=== PATIENT | female | born 1945 | race Caucasian/White ===

== ENCOUNTER 2020-12-03 14:21 | Outpatient (CLI) | payer MEDICARE, MEDICAID, SELFPAY ==
--- NOTE | ~2020-12-03 | CT_ITS ---
EXAMINATION: CT diagnostic chest wo con DATE: 12/03/2020 15:39 INDICATION: Lung nodule TECHNIQUE: Computed tomography (CT) of the chest was performed without intravenous contrast. The dose -length product (DLP) was 84.65 mGy-cm. Automated exposure control and iterative reconstruction techn ique were employed. COMPARISON: None FINDINGS: There is a 4 mm nodule of the left upper lobe on image 30. There is a 4 mm nodule of the le ft lower lobe on image 86. The lungs are free of acute opacities. There is an 8 mm groundglass nodule of the left lower lobe on image 69. There is no pleural effusion or pneumothorax. No pathologically enlarged thoracic lymph nodes are identified. The heart size is normal. Calcified mediastinal lymph n odes are consistent with old granulomatous disease. The gallbladder is surgically absent. IMPRESSION: 1. Groundglass nodule of the left lower lobe, possibly infectious or inflammatory. Follow-up CT in 6- 12 months is recommended. 2. 4 mm nodules of the left lung, likely old granulomatous disease. These can be simultaneously evalu ated at the time of follow-up for the groundglass nodule. Reviewed, dictated and finalized at location A. IMPRESSION: 1. Groundglass nodule of the left lower lobe, possibly infectious or inflammato ry. Follow-up CT in 6-12 months is recommended. 2. 4 mm nodules of the left lung, likely old granulomatous disease. These can b e simultaneously evaluated at the time of follow-up for the groundglass nodule.
--- NOTE | 2020-12-05 12:17 | WPDSIXMINUTE ---
Six Minute Walk Procedure Procedure Performed Pulmonary Stress Test (6 min walk) Six Minute Walk Six Minute Walk: The patients O2 sats started at 96% and dropped as low as 92% on home 2 liters portable oxygen concentrator Total walk distance 228.60 meters conclusion: 2 L of oxygen per nasal cannula appears to be the appropriate dose at rest, exertion and during sleep.
--- NOTE | 2020-12-05 12:19 | WPDPFTINT ---
PFT Procedure Performed PFT Procedure Performed Spirometry with Pre/Post Bronchodilator Plethysmography (Lung Vol) Diffusing Cap (DLCO) Flow Vol Loop PFT Interpretation This PFT met all criteria for ATS standards and reproducibility FEV/FVC post bronchodilator 57% FEV1 58% FVC 74% TLC 93% RV 117% RV/TLC 57% DLCO 35% when adjusted for alveolar volume but not adjusted for hemoglobin Flow volume loops showed significant expiratory coving Impression: moderate airflow obstruction with borderline air trapping and severely reduced diffusion capacity. This pattern is suggestive of COPD. Clinical correlation is advised.
== END 2020-12-03 14:22 | disposition home or self-care (01) ==
PROVIDERS: Visit Provider Nurse Practitioner
DX: R91.1 Solitary pulmonary nodule (principal); R94.2 Abnormal results of pulmonary function studies; R91.8 Other nonspecific abnormal finding of lung field
CPT/HCPCS: 71250; 94060; 94618; 94726; 94729

== ENCOUNTER 2024-10-16 14:48 | Emergency (ER) | payer MEDICAID, MEDICARE, SELFPAY ==
--- NOTE | ~2024-10-16 | XR_ITS ---
EXAMINATION: XR hand LT min 3V DATE: 10/16/2024 15:38 INDICATION: Pain and swelling at the palmar aspect of the left hand TECHNIQUE: Posteroanterior, oblique and lateral views of the left hand were obtained. COMPARISON: None. FINDINGS: Bone alignment is normal. Diffuse osteopenia. No fracture. Polyarticular osteoarthritis at the left h and, moderate severity at the first carpometacarpal and first interphalangeal joint and mild at the r emaining joints throughout the left hand. No erosions to suggest inflammatory arthritis. IMPRESSION: 1. 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 No acute osseous abnormality. Reviewed, dictated and finalized at location A. IMPRESSION: 1. 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 No acute oss eous abnormality.
[2024-10-16 15:01] VITALS: BP 141/46; PULSE 67; RESP 20; TEMP 36.6; O2SAT 99
--- NOTE | 2024-10-16 15:20 | ED.GENADULT ---
HPI - General Adult General Chief complaint: Extremity Injury, Upper Stated complaint: left arm pain Source: patient Mode of arrival: ambulatory Limitations: no limitations History of Present Illness HPI narrative: 79-year-old female presented for complaint of left hand and wrist pain and swelling worsening over 1 week. She states the pain started in her fingers but has spread to wrist. Reports decreased ROM in wrist and unable to make a fist. Not taking anything for pain. Denies redness, bruising or deformity, numbness, tingling or weakness. denies injury. Rates pain 12/24. Related Data Home Medications ?Medication ?Instructions ?Recorded ?Confirmed ?Last Taken ?Type alprazolam 0.5 mg tablet mg 10/16/24 Unknown History aspirin 81 mg tablet,delayed 81 mg PO DAILY 10/16/24 Unknown History release (Adult Aspirin Regimen) fluticasone fur. 100 mcg-umeclid inhalation 10/16/24 Unknown History 62.5 mcg-vilant 25 mcg inhalat.powder (Trelegy Ellipta) fluticasone propionate 50 intranasal 10/16/24 Unknown History mcg/actuation nasal spray,suspension isosorbide mononitrate 30 mg mg PO 10/16/24 Unknown History tablet,extended release 24 hr metoprolol tartrate 25 mg tablet mg 10/16/24 Unknown History pantoprazole 20 mg tablet,delayed mg PO 10/16/24 Unknown History release Allergies Allergy/AdvReac Type Severity Reaction Status Date / Time No Known Allergies Allergy Verified 10/16/24 15:08 Review of Systems Review of Systems: CONSTITUTIONAL: Denies body aches, fever, chills CARDIOVASCULAR: Denies chest pain, palpitations, or edema. RESPIRATORY: Denies cough or dyspnea. SKIN: Denies rash wounds. MUSCULOSKELETAL: per HPI NEUROLOGIC: Denies headache, numbness, tingling, or weakness. All systems reviewed & are unremarkable except as noted in HPI and below [facility] Comments At time of signature, I have reviewed and agree with nursing past medical, surgical, social and family history unless otherwise noted. Please see nursing chart for further information. There is no relevant family history pertinent to the presenting complaint Exam Narrative: GENERAL: Well-appearing CHEST: Speaks in full sentences. No respiratory distress. HEART: Regular rate and rhythm. Normal and equal peripheral pulses. EXTREMITIES: Left hand with mild swelling and decreased ROM with making fist and with flexion/extension of left wrist. Hand has normal sensation. No ecchymosis, No point tenderness. No open wounds, skin tenting, obvious deformity; alignment normal, pulse palpable and equal bilaterally, skin warm, dry, pink. Capillary refill less than 3 seconds. SKIN: Warm, dry, no rash. NEURO: Alert and oriented x3. PSYCH: Normal mood and affect Course Course Emergency Course: Patient is aware of diagnosis, understands and agrees to treatment plan. Anticipatory guidance given. Patient agrees to follow-up as directed and is aware of reasons to seek care at the emergency department. Portions of this record may have been created with voice recognition software Level of Care: Express Care Visit Vital Signs Vital signs: Vital Signs Temperature 97.9 F 10/16/24 15:01 Pulse Rate 67 10/16/24 15:01 Respiratory Rate 20 10/16/24 15:01 Blood Pressure 141/46 H 10/16/24 15:01 Pulse Oximetry 99 10/16/24 15:01 Oxygen Delivery Room Air 10/16/24 15:01 Temperature 97.9 F 10/16/24 15:01 Pulse Rate 67 10/16/24 15:01 Respiratory Rate 20 10/16/24 15:01 Blood Pressure 141/46 H 10/16/24 15:01 Pulse Oximetry 99 10/16/24 15:01 Oxygen Delivery Room Air 10/16/24 15:01 Reviewed Medical Decision Making MDM Narrative Medical decision making narrative: Discussed physical exam findings and xray. Advised supportive measures and signs/symptoms to go to the ER. Pt is appropriate for outpt treatment and f/u. Differential Diagnosis Differential Diagnosis: sprain/strain of wrist, Colles' fracture, wrist fracture, hand fracture, finger sprain, dislocation of finger, gout, cellulitis, arthritis, tendonitis Vital Signs Vital Signs: Vital Signs Temperature 97.9 F 10/16/24 15:01 Pulse Rate 67 10/16/24 15:01 Respiratory Rate 20 10/16/24 15:01 Blood Pressure 141/46 H 10/16/24 15:01 Pulse Oximetry 99 10/16/24 15:01 Oxygen Delivery Room Air 10/16/24 15:01 Temperature 97.9 F 10/16/24 15:01 Pulse Rate 67 10/16/24 15:01 Respiratory Rate 20 10/16/24 15:01 Blood Pressure 141/46 H 10/16/24 15:01 Pulse Oximetry 99 10/16/24 15:01 Oxygen Delivery Room Air 10/16/24 15:01 Imaging Data Radiologist's impression: Patient: Sania Foster : 1945 MR#: [id number] Age: 79 Acct:[id number] Loc: [facility] ADM Date: 10/16/24Attending Dr: Ordering Physician: Karolina Rinaldi APRN Date of Service: 10/16/24 Procedure(s): XR hand LT min 3V Accession Number(s): [id number] cc: Karolina Rinaldi APRN; UNKNOWN,DOCTOR~ EXAMINATION: XR hand LT min 3V DATE: 10/16/2024 15:38 INDICATION: Pain and swelling at the palmar aspect of the left hand TECHNIQUE: Posteroanterior, oblique and lateral views of the left hand were obtained. COMPARISON: None. FINDINGS: Bone alignment is normal. Diffuse osteopenia. No fracture. 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 No erosions to suggest inflammatory arthritis. IMPRESSION: 1. 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 No acute osseous abnormality. Discharge Plan Discharge Clinical Impression: Hand pain, left Patient Disposition: Home, Self-Care Condition: Stable Instructions: Antibiotic Form, Osteoarthritis (ED) Additional Instructions: Rest and elevate the left hand. Avoid pushing, pulling, lifting or anything that worsens the symptoms Tylenol 650mg every 8 hours as needed Alternate ice/heat to the site. pain cream like icy/hot or biofreeze. Follow up with your primary care provider as needed in 1 week Go to the ER for worsening symptoms or concerns Patient Language: Panamanian Prescriptions: No Action isosorbide mononitrate 30 mg tablet extended release 24 hr PO pantoprazole 20 mg tablet,delayed release (DR/EC) PO alprazolam 0.5 mg tablet fluticasone propionate 50 mcg/actuation spray,suspension INTRANASAL metoprolol tartrate 25 mg tablet Trelegy Ellipta 100-62.5-25 mcg blister with device INHALATION aspirin [Adult Aspirin Regimen] 81 mg tablet,delayed release (DR/EC) 81 mg PO DAILY Follow-up/Referrals: UNKNOWN,DOCTOR [Primary Care Provider] - Time of Disposition: 16:05
--- OUTSIDE RECORDS SUMMARY | 2024-10-16 16:13 | XMS_ITS | CONTINUITY OF CARE DOCUMENT ---
Author Name lee, lee Address Unknown Organization [facility] Address [address] [place] [address] Phone [phone] Care Team Providers Care Tech Writer Name Role Phone Brenda CURIEL, Olga Caputo Unavailable [phone] DIANE GUAMAN MD, OG Unavailable [phone] MARIA DEL CARMEN CURIEL, KYLER Unavailable PROBLEMS Condition Status Date Provider Notes TOBACCO ABUSE active Karolina Brewer COPD active Karolina Brewer ENCOUNTERS Date Type Provider Location Encounter Diagnosis - In-person encounter Office Visit Rahat Reed MD [facility] - In-person encounter Office Visit Rahat Reed MD [facility] - In-person encounter Office Visit Rahat Reed MD [facility] VITAL SIGNS Date Observation Value Provider blood pressure, diastolic 68 mm[Hg] Da sabino Peter blood pressure, systolic 139 mm[Hg] Adam Peter pulse rate 91 /min Augusta Peter oxygen saturation, oximetry 95 % Augusta Peter respiratory rate E&M 16 /min Alejo Peter weight E&M 138 [lb_av] Augusta Peter oxygen saturation, oximetry 92 % Karly Rios MA blood pressure, diastolic 74 mm[Hg] Nydia Rios MA blood pressure, systolic 134 mm[Hg] Pan Rios MA pulse rate 76 /min Karly Rios MA respiratory rate E&M 18 /min Karly Rios MA weight E&M 130 [lb_av] Karly Gabriel NUNEZ blood pressure, diastolic 67 mm[Hg] Blair Vazquez RN blood pressure, systolic 126 mm[Hg] Jonn Vazquez RN pulse rate 83 /min Jonn Vazquez RN oxygen saturation, oximetry 92 % Jonn Vazquez RN respiratory rate E&M 16 /min Jonn terrell RN weight E&M 136 [lb_av] Jonn Vazquez RN ALLERGIES No Known Drug Allergies HISTORY OF MEDICATION USE Medication Status Instructions Dates Provider Indications Com ments CELEXA 10 MG ORAL TABLET active take one tablet in the morning Lauryn Dayton ASPIRIN 81 MG ORAL TABLET active ONE TAB. DAILY Rahat Reed MD CITALOPRAM HYDROBROMIDE 20 MG ORAL TABLET active take one tablet in the morning Lauryn Dayton LORAZEPAM TABLET active 0.5mg twice daily Lauryn Moshe SOCIAL HISTORY Date Observation Value Provider smoking/tobacco cess ation, patient education and counseling yes Rahat Reed MD social history reviewed E&M reviewed Rahat Reed MD smoking/tobacco cess ation, patient education and counseling yes Jonn Vazquez RN social history reviewed E&M reviewed Jonn Vazquez RN smoking/tobacco cess ation, patient education and counseling yes Jonn Vazquez RN social history E&M Marital Statu s: L maite with family/friends E thnicity: Jonn Vazquez RN social history reviewed E&M reviewed Jonn Vazquez RN physical exercise, f requency, days per week no [employer] caffeine use, averag e drinks per day yes [employer] alcohol use, average drinks per day social basis only [employer] number of years as a smoker 10 years or m ore [employer] smoking status Smoker [employer] MENTAL STATUS Date Observation Value Provider assessment of judgme nt and insight E&M Alert and oriented to time, place and person. Mood and affect are normal. Rahat Reed MD assessment of judgme nt and insight E&M Alert and oriented to time, place and person. Mood and affect are normal. Jonn Vazquez RN assessment of judgme nt and insight E&M Alert and oriented to time, place and person. Mood and affect are normal. Jonn Vazquez RN INSURANCE PROVIDERS Payer name Policy type / Coverage type Ant red republican ID MEDICAID [place] Medicaid [id number] [facility] Medicaid 6 [id number] [place] MEDIC[place] Medicare [id number] TREATMENT PLAN Date Name Performer f/u Rahat Reed MD f/u:The Patient was reencouraged to stop smoking. Rahat Reed MD f/u: H er updated medication list for this problem includes: Aspirin 81 Mg Tabs (Aspirin) ..... One tab. daily Rahat Reed MD f/u: H er updated medication list for this problem includes: Aspirin 81 Mg Tabs (Aspirin) ..... One tab. daily Orders: E KG (CPT-06167) w ill check an adenosine myoview. she may need ranexa and or ecp if positive. Rahat Reed MD test results: O rders: T OBACCO USE CESSATION INTERMEDIATE 3-10 MINUTES (CPT-79627) T he Patient was reencouraged to stop smoking. Rahat Reed MD test results: H er updated medication list for this problem includes: Aspirin 81 Mg Tabs (Aspirin) ..... One tab. daily BP today: 134/74 Prior BP: 126/67 (05/07/2009) E chocardiogram: Normal LV size. Normal LV wall thickness. There is E to A wave reversal consistent with impaired LV relaxation . Normal E/E` 7.0. LVEF 45%. Mod to severe hypokinesis of the apex. The left atrium is normal in size. Trace MR. Non-specific thickening of the MVL. AV appears structurally normal. Trace TR. Non-specific thickening of the TV. IVC is normal in size. Unable to adequately assess the RVSP. (08/03/2009) C ardiac Cath: Mild diffuse distal LAD disease. Normal LV systolic function EF 55%. [facility] (03/24/2009) Rahat Reed MD test results: B P today: 134/74 Prior BP: 126/67 (05/07/2009) Pulmonary Functions Reviewed: O 2 sat: 92 (08/06/2009) Rahat Reed MD test results: H er updated medication list for this problem includes: Aspirin 81 Mg Tabs (Aspirin) ..... One tab. daily BP today: 134/74 Prior BP: 126/67 (05/07/2009) C ardiac Cath: Mild diffuse distal LAD disease. Normal LV systolic function EF 55%. [facility] (03/24/2009) C arotid Doppler/Duplex: Less than 50% stenosis of the internal carotid arteries bilaterally. (08/03/2009) E chocardiogram: Normal LV size. Normal LV wall thickness. There is E to A wave reversal consistent with impaired LV relaxation . Normal E/E` 7.0. LVEF 45%. Mod to severe hypokinesis of the apex. The left atrium is normal in size. Trace MR. Non-specific thickening of the MVL. AV appears structurally normal. Trace TR. Non-specific thickening of the TV. IVC is normal in size. Unable to adequately assess the RVSP. (08/03/2009) Orders: E KG (CPT-[id number]) Rahat Reed MD test results: H er updated medication list for this problem includes: Aspirin 81 Mg Tabs (Aspirin) ..... One tab. daily BP today: 134/74 Prior BP: 126/67 (05/07/2009) C ardiac Cath: Mild diffuse distal LAD disease. Normal LV systolic function EF 55%. [facility] (03/24/2009) C arotid Doppler/Duplex: Less than 50% stenosis of the internal carotid arteries bilaterally. (08/03/2009) Rahat Reed MD post cath: B P today: 126/67 Prior BP: / () C ardiac Cath: Mild diffuse distal LAD disease. Normal LV systolic function EF 55%. [facility] (03/24/2009) Her updated medication list for this problem includes: Aspirin 81 Mg Tabs (Aspirin) ..... One tab. daily w ill check an echo and a carotid and see her in 3 months. will ask her to take an asa once daily. Rahat Reed MD post cath: B P today: 126/67 Prior BP: / () C ardiac Cath: Mild diffuse distal LAD disease. Normal LV systolic function EF 55%. [facility] (03/24/2009) Her updated medication list for this problem includes: Aspirin 81 Mg Tabs (Aspirin) ..... One tab. daily Rahat Reed MD post cath: B P today: 126/67 Prior BP: / () Pulmonary Functions Reviewed: O 2 sat: 92 (05/07/2009) Rahat Reed MD Date Name Stress Test - Adenos ine Carotid Duplex Bilat eral Complete Echo HISTORY OF PROCEDURES Procedure Date Procedure Name Provider Procedure Notes S tatus EKG Rahat Reed MD completed EKG Rahat Reed MD completed
--- OUTSIDE RECORDS SUMMARY | 2024-10-16 16:14 | XMS_ITS | Clinical Summary ---
Author Organization [facility] Address [address] [place] [address] Care Team Providers Care Airport Engineer Name Role Phone Sage Santos MD Unavailable [phone] Sage Santos MD Primary Care Provider [phone] Gema Reynoso MD PhD Unavaila ble Keyona Landaverde MD Unavailable [phone] Bouchra Esteves PhD Unavailable Thierry Arellano MD Unavailable Allergies Active Allergy Reactions Criticality Noted Date Comments Other Rash Medium 01/12/2018 Surgery prep cleanser, but patient does not know the name. Medications BREO ELLIPTA 100-25 mcg/dose diskus inhaler Inhale 1 puff nightly. 01/11/2018 Active metoprolol (LOPRESSOR) 25 mg tablet Take 25 mg by mouth 2 (two) times a day. 12/13/[address] (PROTONIX) 20 mg EC tablet Take 20 mg by mouth every morning. 01/11/2018 Active isosorbide mononitrate ER (IMDUR) 30 mg 24 hr tablet TK 1 T PO in the morning 5 12/16/2017 Active albuterol HFA (PROVENTIL HFA,VENTOLIN HFA,PROAIR HFA) 90 mcg/actuation inhaler Inhale every 6 hours as needed. Active ALPRAZolam (XANAX) 0.5 mg tablet Take 0.5 mg by mouth 3 (three) times a day as needed for anxiety. 01/11/2018 Active calcium carbonate (OS-CEASAR) 650 mg calcium (1,625 mg) tablet Take 1 tablet by mouth 2 (two) times a day. Active INCRUSE ELLIPTA 62.5 mcg/actuation blister with device INL 1 PUFF PO QD FOR 30 DAYS UTD 2 03/04/2018 Active fluticasone propionate (FLONASE) 50 mcg/actuation nasal spray SHAKE LQ AND U 2 SPRAYS IEN D 1 04/18/2019 Active aspirin 81 mg enteric coated tablet Take 81 mg by mouth daily Active calcium carbonate-vitami n D3 1500 mg (600 mg elemental) -200 units per tablet Take 1 tablet by mouth daily Active magnesium oxide 200 mg magnesium tablet,chewable Take by mouth Active fluticasone/umec lidin/vilanter (TRELEGY ELLIPTA INHAL) Inhale Active tamoxifen (NOLVADEX) 20 mg tablet Take 1 tablet (20 mg total) by mouth daily 30 tablet 12/23/2021 Active Active Problems Problem Noted Date Diagnosed Date Personal history of malignant neoplasm of breast 02/14/2019 [facility] (current) use of aromatase inhibitors 02/14/2019 Bone disorder 02/14/2019 Encounter for follow-up surveillance of breast c ancer 04/19/2018 Malignant neoplasm of upper- outer quadrant of right breast in female, estrogen receptor positive 02/14/2018 Cancer Staging:Pathologic:Stage IA(pT1b, pN0(sn), cM0, G1, ER: Positive, SD: Positive, HER2: Negative) - Signed by Keyona Landaverde MD on 03/07/2018 Mass of breast 08/17/2016 Overview (10/21/2016): Breast nodule Chronic obstructive pulmonary disease 08/09/2016 Overview (10/21/2016): COPD (chronic obstructive pulmonary disease) Dependence on supplemental oxygen 08/09/2016 Overview (10/21/2016): Requires supplemental oxygen Solitary pulmonary nodule 08/09/2016 Overview (10/22/2016): Incidental lung nodule, > 3mm and < 8mm Encounters Date Type Department Care Team Description 10/11/2024 Telephone [facility] Surgery [address] [facility] [address] [place] [address] Chuy Beaulieu MD 10/04/2024 Telephone [facility] Surgery [address] [facility] [address] [place] [address] Anastacio Lincoln 10/04/2024 Orders Only [facility] Surgery [address] [facility] [address] [place] [address] Matilda Romano, DANIELLA Breast cancer screening by mammogram (Primary Dx) from Last 3 Months Immunizations Immunization Administration Dates Next Due Influenza, Trivalent, High D ose, Split, Preservative Free, Intramuscular 07/15/2016 Pneumococcal Conjugate PCV 13 08/09/2016 Surgical History Surgery Date Site/Laterality Comments OTHER SURGICAL HISTORY 07/17/1976 - 07/16/1977 Partial hysterectomy with ovaries left intact. Unsure if cervix remains HYSTERECTOMY BREAST SURGERY 12/15/2017 - 01/13/2018 Right biopsy 12/15/2017 BREAST BIOPSY MASTECTOMY PARTIAL / LUMPECTOMY 02/14/2018 - 03/16/2018 Right DEEP AXILLARY SENTINEL NODE BIOPSY / EXCISION 02/14/2018 - 03/16/2018 Right Medical History Medical History Date Comments Arthritis Arthritis Hx Other Medical 07/17/2008 [facility] 2008 with no intervention needed onc cardiac ca; Comments: CEB 08/09/2016 - Chest pain few days ago Hypertension Chronic obstructive pulmonar y disease (HCC) COPD/ on home O2 at 2L Heart murmur On home oxygen therapy Breast cancer (HCC) Family History Medical History Relation Name Comments Breast cancer Daughter 1 Cancer, breast ; Ovarian cancer Daughter 2 Cancer, ovari an; Heart attack Father Heart attack Mother Breast cancer Sister 1 Cancer, breast ; Heart disease Sister 1 Colon cancer Sister 2 Cancer, colon; Relation Name Status Comments Daughter 1 Daughter 2 Father Mother Sister 1 Sister 2 Social History Tobacco Use Types Packs/Day Years Used Date Smoking Tobacco: Former Cigarettes 1 53 1 961 - 2014 Smokeless Tobacco: Never Comments:Smoking History Pac ks/day: 1 Packs,quit 4-5 years ago Alcohol Use Standard Drinks/Week Comments No 0 (1 standard drink = 0.6 oz pur e alcohol) Comments No Sex and Gender Information Value Date Recorded Sex Assigned at Not on file Legal Sex Female 1:06 AM KILNMAN Gender Identity Not on file Sexual Orientation Not on file Obstetrics History Last Filed Vital Signs Vital Sign Reading Time Taken Comments Blood Pressure 138/61 12/09/2020 2:36 PM CDT Pulse 89 12/09/2020 2:36 PM CDT Temperature 36.2 C (97.2 F) 12/09/2020 2:36 PM CDT Respiratory Rate 18 12/09/2020 2:36 PM CDT Oxygen Saturation 97% 12/09/2020 2:36 PM CDT Inhaled Oxygen Concentration - - Weight 76.9 kg (169 lb 9.6 oz) 12/09/2020 2:36 P M CDT Height 167.6 cm (5' 6 ) 06/08/2020 10:25 AM KILNMAN Body Mass Index 27.37 06/08/2020 10:25 AM KILNMAN Plan of Treatment Health Maintenance Due Date Last Done Comments Depression Screening 1944 Fall Risk Assessment 1945 DTaP/Tdap/Td Vaccine (1 - Tdap) 1955 Hepatitis B Screening 1962 Zoster Vaccine (1 of 2) 1963 Well Visit 65+ 2009 Osteoporosis Screening-Bone Density Scan 12/30/2021 12/31/2019, 12/31/2019, 10/31/2017 Influenza Vaccine (Season Ended) 2025 05/02/2019, 04/24/2019, 06/04/2018, Additional history exists Colon Cancer Screening-CT Colonography Discontinued 08/26/2016 Colon Cancer Screening-Colonoscopy Discontinued 08/26/2016 Colon Cancer Screening-DNA Stool Discontinued 08/26/19 17 Colon Cancer Screening-FIT Discontinued 08/26/2016 Colon Cancer Screening-FOBT Discontinued 08/26/2016 Colon Cancer Screening-Sigmoidoscopy Discontinued 08/26/2016 Colorectal Cancer Screening Discontinued Pneumococcal vaccine 65+ Completed 10/24/2017, 07/18 Procedures Procedure Name Priority Date/Time Associated Diagnosis Comments COLONOSCOPY REPORT 08/26/2016 from Last 3 Months or Most Recently Relevant to Health Maintenance Results * COLONOSCOPY REPORT (08/26/2016) Anatomical Region Laterality Modality Other Narrative 08/26/2016 Ordered by an unspecified provider. us Historical Provider MD ESCAMILLA PROCEDURE ORDERABLES F inal Result from Last 3 Months or Most Recently Relevant to Health Maintenance Insurance [facility] MEDIC[facility] Address: [facility] [address] [place] [address] [place] [address] MEDICARE [place] [employer] INCLUDES THE [facility] DIVISION [facility] MEDICARE GENERIC RISK OTHER [facility] MEDICARE ADVANTAGE [facility] MEDICARE Address: [address] [address] [place] [address] Care Teams Airport Engineer Relationship Specialty Start Date End Date Sage Santos MD [address] [address] PCP - General 01/12/18 Sage Santos MD [address] [address] Referring Physician Family Medicine 01/01/18 Gema Reynoso MD PhD [address] [phone] Surgeon Surgical Oncology 03/16/18 Keyona Landaverde MD [address] [facility] [address] [place], [place] [id number] Medical Oncologist/Bioanalyst Medical Oncology 04/19/18 Bouchra Esteves, PhD [address] [facility] [address] [place], [place] [id number] Nurse Practitioner Radiation Oncology 04/19/18 Thierry Arellano MD [address] [facility] [address] [place] [address] Radiation Oncologist Radiation Oncology 06/04/18
--- OUTSIDE RECORDS SUMMARY | 2024-10-16 16:14 | XMS_ITS | Clinical Summary ---
Author Organization [facility] Address [address] [facility] [address] [place] [address] Phone Care Team Providers Care Broodmare Foreman Name Role Phone Sage Santos MD Primary Care Provider [phone] Allergies No known active allergies Medications albuterol HFA 90 mcg inhaler Take 2 Puffs by inhalation every 6 hours as needed for Shortness of Breath. Active tamoxifen (NOLVADEX) 20 mg tablet Take 20 mg by mouth daily. Active metoprolol tartrate (LOPRESSOR) 25 mg tabletIndication s:HTN (hypertension), benign Take 0.5 Tablets (12.5 mg) by mouth 2 times daily. 90 Tablet 3 8 Active aspirin (ECOTRIN EC) 81 mg Tablet, Delayed Release (E.C.) Take 81 mg by mouth daily. Active calcium-vitamin D3 (CALTRATE 600+D) 600 mg (1,500 mg) -200 unit Tablet Take 1 Tablet by mouth daily. Active triamcinolone acetonide (KENALOG) 0.1 % CreamIndications :Plaque psoriasis Apply small amount twice daily x 7 days 30 Gram 1 0 Active fluticasone propionate (FLONASE) 50 mcg/spray Celeste, Suspension nasal inhalerIndicatio ns:Seasonal allergic rhinitis, unspecified trigger SHAKE LIQUID AND USE 2 SPRAYS IN EACH NOSTRIL DAILY 48 Gram 0 Active isosorbide mononitrate (IMDUR) 30 mg Extended Release 24 hour tabletIndication s:Stable angina,HTN (hypertension), benign Take 1 Tablet (30 mg) by mouth daily. 90 Tablet 4 1 Active pantoprazole (PROTONIX) 20 mg Tablet, Delayed Release (E.C.)Indication s:Gastroesophage al reflux disease without esophagitis Take 1 Tablet (20 mg) by mouth daily. 90 Tablet 4 1 Active oxygen home deliveryIndicati ons:Mixed simple and mucopurulent chronic bronchitis (CMS/HCC),Hypoxe malia Home Oxygen Concentrator yes at 2 L/M Rest, 2 L/M Activity, 2 L/M Sleep, Delivery Device: Nasal Cannula Portability: yes, 2 L/M Rest, 2 L/M Activity POC with conserving device Maintain Sats: > OR = 90%, Length of Need: 99 months 1 Each 1 Active fluticasone/umec lidin/vilanter (TRELEGY ELLIPTA INHALATION) Take by inhalation. Active ALPRAZolam (XANAX) 0.5 mg tabletIndication s:REINA (generalized anxiety disorder) Take 0.5-1 Tablets (0.25-0.5 mg) by mouth 2 times daily as needed for Anxiety. 60 Tablet 5 1 Active Active Problems Problem Noted Date Diagnosed Date Chronic cholecystitis 09/18/2018 Chronic respiratory failure with hypoxia 018 REINA (generalized anxiety disorder) 04/25/2018 Malignant neoplasm of upper- outer quadrant of right breast in female, estrogen receptor positive 02/14/2018 Age-related osteoporosis wit hout current pathological fracture 11/13/2017 HTN (hypertension), benign 10/24/2017 COPD (chronic obstructive pulmonary disease) 04/2018 Stable angina 10/24/2017 Gastroesophageal reflux disease without esophagi tis 01/06/2017 Solitary pulmonary nodule 08/09/2016 Overview (12/24/2020): Incidental lung nodule, > 3mm and < 8mm Resolved Problems Problem Noted Date Diagnosed Date Resolved Date Hypokalemia 10/14/2016 10/24/2017 Chronic bronchitis 09/27/2016 7 Hypoxemia 09/27/2016 10/24/2017 Chronic bronchitis 09/01/2016 8 Immunizations Immunization Administration Dates Next Due (PNEUMOVAX 23)(50 YRS UP) PN EUMOCOCCAL POLYSACCHARIDE (PPV23) 0.5 ML, IM 10/24/2017 (PREVNAR 13)(6 WKS UP) PNEUM OCOCCAL CONJUGATE (PCV13) 0.5 ML, IM 08/09/2016 INFLUENZA VACCINE HIGH DOSE QUADRIVALENT 65 YR UP PF IM 05/26/2020 05/26/2021 INFLUENZA VACCINE QUADRIVALE NT 6 MOS UP IM 04/24/2019 Influenza Seasonal Unspecifi ed Formulation IM 07/26/2016 Influenza Vaccine High Dose 65+ Yrs IM 9,07/12/2017,07/15/2016 Influenza Vaccine Tri Adjuva nted 65+ PF IM 06/04/2018 Family History Medical History Relation Name Comments Breast Cancer Daughter Heart Disease Father Unknown Maternal Grandfather Heart Disease Maternal Grandmother Heart Disease Mother Unknown Paternal Grandfather Unknown Paternal Grandmother Breast Cancer Sister Colon Cancer Sister Relation Name Status Comments Daughter Father Maternal Grandfather Maternal Grandmother Mother Paternal Grandfather Paternal Grandmother Sister Social History Tobacco Use Types Packs/Day Years Used Date Smoking Tobacco: Former Cigarettes Q uit: 07/17/2014 Smokeless Tobacco: Never Alcohol Use Standard Drinks/Week Comments Yes 0 (1 standard drink = 0.6 oz pur e alcohol) occassional Financial Resource Strain Answer Date R ecorded How hard is it for you to pa y for the very basics like food, housing, medical care, and heating? Not hard at all 12/24/2020 Food Insecurity Answer Date Recorded In the past 12 months, have you worried that your food would run out before you had money to buy more? Never true 12/24/2020 In the past 12 months, did y ou run out of food and didn't have money to buy more? Never true 12/24/2020 Transportation Needs Answer Date Record ed In the past 12 months, has l ack of transportation kept you from medical appointments or from getting medications? 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 Gender Identity Not on file Sexual Orientation Not on file Last Filed Vital Signs Vital Sign Reading Time Taken Comments Blood Pressure 130/72 12/24/2020 3:27 PM CDT Pulse 86 12/24/2020 3:27 PM CDT Temperature 36.1 C (96.9 F) 12/24/2020 3:27 PM CDT Respiratory Rate 16 12/24/2020 3:27 PM CDT Oxygen Saturation 93% 12/24/2020 3:27 PM CDT Inhaled Oxygen Concentration - - Weight 74.8 kg (165 lb) 12/24/2020 3:27 PM CDT Height 167.6 cm (5' 6 ) 12/24/2020 3:27 PM CDT Body Mass Index 26.63 12/24/2020 3:27 PM CDT Plan of Treatment Health Maintenance Due Date Last Done Comments DTAP/TDAP/TD VACCINES (1 - Tdap) 1963 ZOSTER VACCINE (1 of 2) 1994 RSV VACCINE (60+ or ) (1 - 1-dose 75+ series) 2019 INFLUENZA VACCINE (#1) 2024 0, 05/02/2019, 04/24/2019, Additional history exists [place] ([place]) Preventative Visit/Annual Wellness Visit 07/17/2024 12/24/2020, 07/05/2019, 10/24/2017 COLORECTAL SCREENING Discontinued 08/26/2016, 08/26/2016, 08/26/2016 Colorectal Cancer Screening Discontinued PNEUMOCOCCAL VACCINE 50+ YEARS Completed 10/24/2017 , 08/09/2016 OSTEOPOROSIS SCREENING Completed 4, 12/31/2019, 10/31/2017 FIT-DNA Q 3 years Discontinued FIT/FOBT Q 1 year Discontinued Flex Sig/CT Colonography Q 5 years Discontinued Procedures Procedure Name Priority Date/Time Associated Diagnosis Comments XR DEXA BONE DENSITY AXIAL 1 OR MORE SITES Routine 12/31/2019 1:05 PM CDT Age-related osteoporosis without current pathological fracture ENDOSCOPY, COLON, SCREENING Routine 08/26/2016 from Last 3 Months or Most Recently Relevant to Health Maintenance Results * XR DEXA BONE DENSITY AXIAL 1 OR MORE SITES (12/31/2019 1:05 PM CDT) Anatomical Region Laterality Modality Digital Radiogra phy 12/31/2019 1:12 PM CDT Impressions 12/31/2019 8:00 PM CDT IMPRESSION: 1. Current findings consistent with osteoporosis; there is currently high risk for fracture with site of lowest density at the femoral neck. 2. Age matched Z-score of greater than -2.0 does not indicate accelerated bone demineralization. Definitions: T-score > -0.99 = Normal T-score -1.00 to -1.49 = mild osteopenia T-score -1.50 to -1.99 = moderate osteopenia T-score -2.00 to -2.49 = severe osteopenia T-score < -2.50 = osteoporosis N.B. Changes in density of <=0.05 g/cm2 are not statistically significant. RECOMMENDATIONS: Normal: Low risk for fracture - f/u in 2 years Mild/Mod osteopenia: Moderate risk for fracture - f/u in 1 year Severe osteopenia: Moderate/high risk for fracture - f/u in 1 year Osteoporosis: High risk for fracture - f/u in 1 year NOF guidelines recommend consideration of FDA-approved medical therapies in patients with FRAX determined 10-year probabilities of hip/major osteoporosis-related fractures equal or greater than 3%/20% respectively. Consider assessing fracture risk using the FRAX analysis tool for guidance of clinical management available online at www.shef.ac.uk/FRAX/. Enter Zank for Select DXA and the Femoral Neck BMD value. Narrative 12/31/2019 8:00 PM CDT Exam: XR DEXA BONE DENSITY AXIAL 1 OR MORE SITES Reason For Exam: See Diagnosis, osteoporosis screening. Diagnosis: Age-related osteoporosis without current pathological fracture Findings: The following absorptiometry data were obtained. The quality of this examination is acceptable with regards to count density, processed images, data display and lack of important artifacts (including but not limited to motion and attenuation artifacts). L1-L4 BMD (g/cm2): 0.733 Adult T-score: -2.9 Adult Z-score: Normal Left Femoral Neck BMD (g/cm2): 0.528 Adult T-score: -2.9 Adult Z-score: Normal Left Total Hip BMD (g/cm2): 0.771 Adult T-score: -1.9 Adult Z-score: Normal Procedure Note Richar Butler MD - 12/31/2019 Exam: XR DEXA BONE DENSITY AXIAL 1 OR MORE SITES Reason For Exam: See Diagnosis, osteoporosis screening. Diagnosis: Age-related osteoporosis without current pathological fracture Findings: The following absorptiometry data were obtained. The quality of this examination is acceptable with regards to count density, processed images, data display and lack of important artifacts (including but not limited to motion and attenuation artifacts). L1-L4 BMD (g/cm2): 0.733 Adult T-score: -2.9 Adult Z-score: Normal Left Femoral Neck BMD (g/cm2): 0.528 Adult T-score: -2.9 Adult Z-score: Normal Left Total Hip BMD (g/cm2): 0.771 Adult T-score: -1.9 Adult Z-score: Normal IMPRESSION: 1. Current findings consistent with osteoporosis; there is currently high risk for fracture with site of lowest density at the femoral neck. 2. Age matched Z-score of greater than -2.0 does not indicate accelerated bone demineralization. Definitions: T-score > -0.99 = Normal T-score -1.00 to -1.49 = mild osteopenia T-score -1.50 to -1.99 = moderate osteopenia T-score -2.00 to -2.49 = severe osteopenia T-score < -2.50 = osteoporosis N.B. Changes in density of <=0.05 g/cm2 are not statistically significant. RECOMMENDATIONS: Normal: Low risk for fracture - f/u in 2 years Mild/Mod osteopenia: Moderate risk for fracture - f/u in 1 year Severe osteopenia: Moderate/high risk for fracture - f/u in 1 year Osteoporosis: High risk for fracture - f/u in 1 year NOF guidelines recommend consideration of FDA-approved medical therapies in patients with FRAX determined 10-year probabilities of hip/major osteoporosis-related fractures equal or greater than 3%/20% respectively. Consider assessing fracture risk using the FRAX analysis tool for guidance of clinical management available online at www.shef.ac.uk/FRAX/. Enter Zank for Select DXA and the Femoral Neck BMD value. Bouchra Contreras STAFF COMMAND AND CONTROL OFFICER DIAGNOSTIC IMAGING ORDERABLES Fi nal Result * ENDOSCOPY, COLON, SCREENING (08/26/2016) Abstract Spg Provider GI PROCEDURE ORDERABLES Fi nal Result from Last 3 Months or Most Recently Relevant to Health Maintenance Insurance [place] [address] [address] Care Teams Broodmare Foreman Relationship Specialty Start Date End Date Sage Santos MD [address] [facility] [address] [place] [address] PCP - General Family Practice 10/24/17
--- OUTSIDE RECORDS SUMMARY | 2024-10-16 16:14 | XMS_ITS ---
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 02/14/2019 Bone disorder 02/14/2019 Encounter for follow-up surveillance of breast c ancer 04/19/2018 Malignant neoplasm of upper- outer quadrant of right breast in female, estrogen receptor positive 02/14/2018 Cancer Staging:Pathologic:Stage IA(pT1b, pN0(sn), cM0, G1, ER: Positive, OR: Positive, HER2: Negative) - Signed by Keyona Landaverde MD on 03/07/2018 Mass of breast 08/17/2016 Overview (10/21/2016): Breast nodule Chronic obstructive pulmonary disease 08/09/2016 Overview (10/21/2016): COPD (chronic obstructive pulmonary disease) Dependence on supplemental oxygen 08/09/2016 Overview (10/21/2016): Requires supplemental oxygen Solitary pulmonary nodule 08/09/2016 Overview (10/22/2016): Incidental lung nodule, > 3mm and < 8mm Current Treatment and Therapy Plans No current plan information found. Past Treatment and Therapy Plans Radiation Treatments * Course C1 VR RT [id number] 04/05/2018 - 04/09/2018 Treatment Period Energy Fraction Dose Fractions Total Dose Plans Planned VR RUOQ BRST 04/05/2018 - 04/09/2018 850 3 / 2,550 Reference Points Delivered [id number] 04/05/2018 - 04/09/2018 2,550
--- OUTSIDE RECORDS SUMMARY | 2024-10-16 16:14 | XMS_ITS | Referral Summary ---
Author Organization [facility] Address [address] [place] [address] Care Team Providers Care Inside Horticultural Specialty Grower Name Role Phone Sage Santos MD Unavailable Sage Santos MD Primary Care Provider [phone] Gema Reynoso MD PhD Unavaila ble Keyona Landaverde MD Unavailable [phone] Bouchra Esteves PhD Unavailable [phone] Thierry Arellano MD Unavailable Encounters Date Type Department Care Team Description 10/11/2024 Telephone [facility] [address] [place] [phone] Chuy Beaulieu MD 10/04/2024 Telephone [facility] Surgery [address] [place] [phone] Anastacio Lincoln 10/04/2024 Orders Only [facility] Surgery [address] [place] [address] [address] [place] [address] Matilda Romano NP Breast cancer screening by mammogram (Primary Dx) from Last 3 Months Allergies Active Allergy Reactions Criticality Noted Date [...] history of malignant neoplasm of breast 02/14/2019 nursing home (current) use of aromatase inhibitors 02/14/2019 Bone disorder 02/14/2019 Encounter for follow-up surveillance of breast c ancer 04/19/2018 Malignant neoplasm of upper- outer quadrant of right breast in female, estrogen receptor positive 02/14/2018 Cancer Staging:Pathologic:Stage IA(pT1b, pN0(sn), cM0, G1, ER: Positive, MT: Positive, HER2: Negative) - Signed by Keyoan Landaverde MD on 03/07/2018 Mass of breast 08/17/2016 Overview (10/21/2016): Breast nodule Chronic obstructive pulmonary disease 08/09/2016 Overview (10/21/2016): COPD (chronic obstructive pulmonary disease) Dependence on supplemental oxygen 08/09/2016 Overview (10/21/2016): Requires supplemental oxygen Solitary pulmonary nodule 08/09/2016 Overview (10/22/2016): Incidental lung nodule, > 3mm and < 8mm Immunizations Immunization Administration Dates Next Due Influenza, Trivalent, High D ose, Split, Preservative Free, Intramuscular 07/15/2016 Pneumococcal Conjugate PCV 13 08/09/2016 Social History Tobacco Use Types Packs/Day Years [...] on file Legal Sex Female 1:06 AM ERGONOMIC SPECIALIST Gender Identity Not on file Sexual Orientation [...] cm (5' 6 ) 06/08/2020 10:25 AM ERGONOMIC SPECIALIST Body Mass Index 27.37 06/08/2020 10:25 AM ERGONOMIC SPECIALIST Plan of Treatment Not on file Procedures Procedure Name Priority Date/Time Associated Diagnosis Comments COLONOSCOPY REPORT 08/26/2016 from Last 3 Months or Most Recently Relevant to Health Maintenance Results * COLONOSCOPY REPORT (08/26/2016) Anatomical Region Laterality Modality Other Narrative 08/26/2016 Ordered by an unspecified provider. us Historical Provider GI PROCEDURE ORDERABLES F inal Result from Last 3 Months or Most Recently Relevant to Health Maintenance Insurance [employer] DUAL COMPLETE [id number] [facility] MEDICARE Address: [address] [place] [id number] [place] [address] MEDICARE [place] [facility]ICARE GENERIC RISK OTHER [facility] MEDICARE ADVANTAGE [facility] MEDICARE Address: [address] [address] [place] [address] [place] [address] Care Teams Inside Horticultural Specialty Grower Relationship Specialty Start Date End Date Sage Santos MD [address] [address] PCP - General 01/12/18 Sage Santos MD [address] [address] Referring Physician Family Medicine 01/01/18 Gema Reynoso MD PhD [address] [address] Surgeon Surgical Oncology 03/16/18 Keyona Landaverde MD [address] [facility] [address] [place] [address] Medical Oncologist/Cattle Tester Medical Oncology 04/19/18 Bouchra Esteves, PhD [address] [facility] [address] [place] [address] Nurse Practitioner Radiation Oncology 04/19/18 Thierry Arellano MD [address] [facility] [address] [place] [address] Radiation Oncologist Radiation Oncology 06/04/18
--- OUTSIDE RECORDS SUMMARY | 2024-10-16 16:19 | XMS_ITS | CONTINUITY OF CARE DOCUMENT ---
Author Name lee, lee Address Unknown Organization [facility] Address [address] [place] [address] Phone [phone] Care Team Providers Care Merchandise Handler Name Role Phone Brenda CURIEL, Olga Caputo Unavailable DIANE GUAMAN MD, OG Unavailable [phone] MARIA DEL CARMEN CURIEL, KYLER Unavailable PROBLEMS Condition Status Date Provider Notes TOBACCO ABUSE active Karolina Brewer COPD active Karolina Brewer ENCOUNTERS Date Type Provider Location Encounter Diagnosis - In-person encounter Office Visit Rahat Reed MD [facility] - In-person encounter Office Visit Rahat Reed MD [facility] - In-person encounter Office Visit Rahat Reed MD [facility] VITAL SIGNS Date Observation Value Provider [...] take one tablet in the morning Lauryn Weston ASPIRIN 81 MG ORAL TABLET active ONE TAB. DAILY Rahat Reed MD CITALOPRAM HYDROBROMIDE 20 MG ORAL TABLET active take one tablet in the morning Lauryn Weston LORAZEPAM TABLET active 0.5mg twice daily Lauryn [...] Policy type / Coverage type [employer] party ID MEDICAID MD Medicaid [id number] [facility] Medicaid 6 [id number] [place] MEDICARE Medicare [id number] TREATMENT PLAN Date Name Performer f/u Rahat Reed MD f/u:The Patient was reencouraged to stop smoking. Rahat Reed MD f/u: H er updated medication list for this problem includes: Aspirin 81 Mg Tabs (Aspirin) ..... One tab. daily Rahat Reed MD f/u: H er updated medication list for this problem includes: Aspirin 81 Mg Tabs (Aspirin) ..... One tab. daily Orders: E KG ([id number]) w ill check an adenosine myoview. she may need ranexa and or ecp if positive. Rahat Reed MD test results: O rders: T OBACCO USE CESSATION INTERMEDIATE 3-10 MINUTES ([id number]) T he Patient was reencouraged to stop [...] disease. Normal LV systolic function EF 55%. [facility] (03/24/2009) Rahat Reed MD test results: B [...] disease. Normal LV systolic function EF 55%. [facility] (03/24/2009) C arotid Doppler/Duplex: Less than 50% [...] assess the RVSP. (08/03/2009) Orders: E KG ([id number]) Rahat Reed MD test results: H er updated medication list for this problem includes: Aspirin 81 Mg Tabs (Aspirin) ..... One tab. daily BP today: 134/74 Prior BP: 126/67 (05/07/2009) C ardiac Cath: Mild diffuse distal LAD disease. Normal LV systolic function EF 55%. [facility] (03/24/2009) C arotid Doppler/Duplex: Less than 50% stenosis of the internal carotid arteries bilaterally. (08/03/2009) Rahat Reed MD post cath: B P today: 126/67 Prior BP: / () C ardiac Cath: Mild diffuse distal LAD disease. Normal LV systolic function EF 55%. [facility] (03/24/2009) Her updated medication list for this [...] disease. Normal LV systolic function EF 55%. [facility] (03/24/2009) Her updated medication list for this [...]
== END 2024-10-16 16:12 | disposition home or self-care (01) ==
PROVIDERS: Emergency Provider Nurse Practitioner Family
DX: M79.642 Pain in left hand (principal); M18.12 Unilateral primary osteoarthritis of first carpometacarpal joint, left hand; M19.042 Primary osteoarthritis, left hand; J44.9 Chronic obstructive pulmonary disease, unspecified; Z99.81 Dependence on supplemental oxygen
CPT/HCPCS: 73130; 99213; G0463